=== PATIENT | female | born 1980 | race Caucasian/White ===

== ENCOUNTER → 2016-10-21 | Outpatient (CLI) | payer OTHER ==
[~2016-10-21] MED LIST: IBUP600T44 PO; INSHRI SC; INSUINJ SC; OXYC-57 PO; PRENTAB69 PO
== END | disposition home or self-care (01) ==
LOC: C.PAPS 11:58
PROVIDERS: ATTEND Obstetrics & Gynecology
DX: Z12.4 Encounter for screening for malignant neoplasm of cervix (principal)

== ENCOUNTER → 2016-10-31 | Outpatient (CLI) | payer OTHER ==
--- NOTE | 2016-10-31 13:45 | MAMMOGRAPHY REPORT ---
UNILATERAL LEFT DIGITAL DIAGNOSTIC MAMMOGRAM TOMOSYNTHESIS WITH CAD AND TARGETED LEFT ULTRASOUND: CLINICAL HISTORY: The patient reports a focal area of tenderness in the left breast approximately on e week ago, which has since subsided. She also reports that she felt a possible lump in that region , which feels less prominent to her now. TECHNIQUE: Breast tomosynthesis in addition to standard 2D mammography was performed. Current study was also evaluated with a Computer Aided Detection (CAD) system. Left CC and MLO 2-D and tomosynth esis images were obtained. COMPARISON: No prior exams were available for comparison. BREAST COMPOSITION: There are scattered areas of fibroglandular density in the left breast. FINDINGS: A triangle marker jerome the site of the pain and palpable lump in the left upper outer ainsley drant. No suspicious masses or other suspicious sonographic abnormalities are noted in this region. The remainder of the left breast is negative, without suspicious masses, calcifications, or areas of architectural distortion noted. Targeted ultrasound was performed of the area of pain and possible lump pointed out by the patient, in the left breast at 1:00, 2 cm from the nipple. Sonographically normal tissue is seen in this reg ion, without evidence of a mass or other suspicious sonographic abnormalities. IMPRESSION: ACR BI-RADS CATEGORY 1: NEGATIVE, TARGETED ULTRASOUND ACR BI-RADS CATEGORY 1: NEGATIVE No suspicious mammographic or sonographic abnormality at the site of the prior left breast pain and possible lump. There is no mammographic or targeted sonographic evidence of malignancy. Recommend clinical follow-up,and recommend routine bilateral screening mammograms starting at the age of 40 un less otherwise clinically indicated. The patient has been verbally notified of the results. Approximately 10% of breast cancers are not detected with mammography. A negative mammographic repor t should not delay biopsy if a clinically suggestive mass is present. Maryuri Caputo M.D. ah/:10/31/2016 10:02:31 Delivery Table Operator: Rhonda ESQUIVEL)([place]), [facility] letter sent: Normal 1/2 BI-RADS Code: ACR BI-RADS Category 1: Negative Ultrasound BI-RADS: ACR BI-RADS Category 1: Negative
== END | disposition home or self-care (01) ==
LOC: C.MAMM 09:11
PROVIDERS: ATTEND Obstetrics & Gynecology
DX: R92.8 Other abnormal and inconclusive findings on diagnostic imaging of breast (principal); N63 Unspecified lump in breast

== ENCOUNTER 2020-06-16 05:30 | Inpatient (IN) ==
--- NOTE | 2020-06-15 12:54 | History & Physical Report ---
Date of Service June 15, 2020 Assessment & Plan (1) Previous delivery affecting , antepartum: Admission and Anticipated Discharge Date Admission Date: IUP st 39 weeks with prior C/S X 2 presents for repeat C/S with tubal ligation. the procedures and their risks were reviewed with the patient and her and all of their questions were answered to their satisfaction. History of Present Illness Primary Care Provider: Pradeep Mckenzie MD Patient is a 40 yo white female EDC 06/20/20 who presents at 39+weeks for repeat section. first was done for failure to progress. 2nd was a scheduled repeat. This complicated by AMA and gestational DM diet controlled. AC's have been appropriate & NST's have been reactive. She is also requesting tubal ligation with her . She can claim with great certainty that she is done with having children. concurs with this plan. Allergies Allergy/AdvReac Type Severity Reaction Status Date / Time No Known Allergies Allergy Verified 06/15/20 08:49 Home Medications Home Medications Medication Instructions Recorded Confirmed Type prenat.vits,dhaval,[id number] 1 tab PO DAILY 10/19/19 06/15/20 History acetone (urine) test #50 ea 11/25/19 06/15/20 Rx blood sugar diagnostic #120 ea 11/25/19 06/15/20 Rx blood-glucose meter #1 ea 11/25/19 06/15/20 Rx lancets 33 gauge #120 ea 11/25/19 06/15/20 Rx acetaminophen [Tylenol] 325 mg PO QID PRN 06/14/20 06/15/20 History Patient History Medical History History of gestational diabetes Surgical History History of removal of cyst History of wisdom tooth extraction Hx of section x 2 Family History Grandfather (Maternal) Colorectal cancer Father Skin cancer Other No family history of adverse response to anesthesia Social History Smoking Status: Former smoker Second Hand Exposure: No; Hx Alcohol Use: No Hx Substance Use: No Preferred Language: Sinhala Communication Ability: Effective Heel Emery Buffer Required: No Beliefs That Will Affect Care: None marital status: marital status details: Triny Bill (36) [phone] Current Living Situation: Spouse Current Living Situation Comment: lvies with spouse, 3 children, no pets. current occupational status: employed current occupation: [employer]. Feels Safe at Home: Yes Review of Systems All systems reviewed & are unremarkable except as noted in HPI & below Physical Exam Constitutional: WD/WN, vitals as above Respiratory: normal respiratory effort, lungs clear to auscultation Cardiovascular: RRR, no murmur, no edema Gastrointestinal (Abdomen): normal bowel sounds, soft, nontender, no hepatosplenomegaly Inspection/Auscultation: + abdominal surgical scar (well healed, low transverse) Psychiatric: A+Ox3, euthymic affect Genitourinary: OB Exam Abdomen: + fundal height (39 cm) OB Exam Monitor Tracing: + external FHT monitor used, + external uterine monitor used, + category I and + normal FHT variability Coding Level of Care Code None Diagnoses Previous delivery affecting , antepartum O34.219
[2020-06-16] MEDS ORDERED: SODIUM CHLORIDE 0.9% 250 ML IV PRN (05:43)
[2020-06-16] MEDS ORDERED: LACTATED RINGER'S 1,000 ML IV SCH ×3 (05:45→09:00)
[2020-06-16 05:53] LABS: Basophils # (auto) 0.02 K/uL (0-0.2); Basophils % (auto) 0.2 %; Eosinophils # (auto) 0.22 K/uL (0-0.5); Eosinophils % (auto) 2.2 %; Hematocrit (blood only) 35.5 % (37-47); Hemoglobin 11.9 g/dL (12.0-16.0); Immature Granulocytes # (auto) 0.04 K/uL (0.00-0.02); Immature Granulocytes % (auto) 0.4 %; Lymphocytes # (auto) 2.78 K/uL (1.2-3.4); Lymphocytes % (auto) 27.2 %; Mean Corpuscular Hemoglobin 30.7 pg (25-34); Mean Corpuscular Volume 91.7 fL (80-100); Mean Platelet Volume 11.3 fL (7.4-10.4); Monocytes # (auto) 0.66 K/uL (0.11-0.59); Monocytes % (auto) 6.5 %; Neutrophils # (auto) 6.51 K/uL (1.4-6.5); Neutrophils % (auto) 63.5 %; Platelet Count 178 K/uL (130-400); RDW Coefficient of Variation 13.8 % (11.5-14.5); RDW Standard Deviation 45.5 fL (36.4-46.3); Red Blood Count 3.87 M/uL (4.2-5.4); White Blood Count 10.23 K/uL (4.8-10.8)
[2020-06-16] MEDS ORDERED: CITRIC ACID/SODIUM CITRATE 15 ML UDC PO SCH (06:00)
[2020-06-16] MEDS ORDERED: CEFAZOLIN 3,000 MG in DEXTROSE 5% 50 ML IV SCH (06:00)
[2020-06-16 06:01] LABS: Mean Corpuscular Hgb Conc 33.5 g/dL (32-36)
[2020-06-16] MEDS ORDERED: ePHEDrine sulfate 50 MG/ML AMP ONE (07:11)
[2020-06-16] MEDS ORDERED: fentaNYL citrate 100 MCG/2 ML VIAL ONE (07:12)
[2020-06-16] MEDS ORDERED: MoRPHine SULFATE PF 1 MG/ML 10 ML AMP/VIAL ONE (07:12)
[2020-06-16] MEDS ORDERED: OXYTOCIN 10 UNITS/ML VIAL ONE ×2 (07:15→10:38)
[2020-06-16] MEDS ORDERED: ONDANSETRON INJ 2 MG/ML 2 ML VIAL ONE (07:15)
--- NOTE | 2020-06-16 07:17 | History & Physical Bridge Note ---
Date of Service June 16, 2020 History & Physical Bridge Note I have examined the patient, reviewed the History & Physical and in the interval since the performance of the History & Physical I have noted the following changes of clinical significance: no changes noted
--- NOTE | 2020-06-16 07:20 | Anesthesiology Consultation ---
Date of Service June 16, 2020 Assessment & Plan (1) Encounter for pre-operative examination: Chart Review Chart Review: Acceptable Risk for Surgery and Patient NOT seen in Pre Admission Testing Consults Requested none ASA ASA3 Proposed Anesthesia Anesthesia Type: Spinal Risk / Benefits Reviewed With: PT / POA / Parent / Guardian, Accepts Plan and I nformed Consent Obtained History Surgery Operation Date: 06/16/20 07:30 Proposed Procedures p Section in LD - Michelle Tyler MD, FACOG s with Bilateral Tubal Ligation Labor & Deliv - Michelle Tyler MD, FACOG Height/Weight Height: 5 ft 2 in Weight: 99.79 kg Allergies Allergy/AdvReac Type Severity Reaction Status Date / Time No Known Allergies Allergy Verified 06/15/20 08:49 Medications Home Medications Medication Instructions Recorded Confirmed Last Taken prenat.vits,dhaval,[id number] 1 tab PO DAILY 10/19/19 06/15/20 Unknown acetone (urine) test #50 ea 11/25/19 06/15/20 Unknown blood sugar diagnostic #120 ea 11/25/19 06/15/20 Unknown blood-glucose meter #1 ea 11/25/19 06/15/20 Unknown lancets 33 gauge #120 ea 11/25/19 06/15/20 Unknown acetaminophen [Tylenol] 325 mg PO QID PRN 06/14/20 06/15/20 Unknown Active Medications Generic Name Dose Route Start Last Admin Trade Name Freq PRN Reason Stop Dose Admin Cefazolin Sodium 3,000 mg/ 72.5 mls @ 145 mls/hr 06/16/20 06:00 06/16/20 07:08 Dextrose IV 06/17/20 05:59 145 mls/hr PREOP AARON Administration NPO Date Last Intake of Fluids: 06/15/20 Time Last Intake of Fluids: 21:00 Date Last Intake of Solids: 06/15/20 Time Last Intake of Solids: 17:00 Past Medical History Medical History History of gestational diabetes Exercise / Class Metabolic Activity II 4-5 Yardwork/Stairs/Walk up hill Past Family History Family History Grandfather (Maternal) Colorectal cancer Father Skin cancer Other No family history of adverse response to anesthesia Past Surgical History Surgical History History of wisdom tooth extraction Hx of section x 2 Past Anesthesia History No Hx of Anesthesia Complications History of PONV No Hx of PONV Social History Smoking Status: Never smoker Do You Dip or Chew Tobacco: No Smoking End Date: approx 10 years ago Hx Alcohol Use: No Hx Substance Use: No substance use type: does not use Review of Systems Negative for chest pain or shortness of breath. Patient denies active symptoms of GERD. Physical Exam Vital Signs Last Vital Signs Temp 36.8 C 06/16/20 05:45 Pulse 76 06/16/20 07:13 Resp 18 06/16/20 05:45 BP 147/89 H 06/16/20 07:13 Constitutional not obese (gravid uterus) ENMT Mouth: no TMJ abnormality and oral opening not small Thyromental Distance: > or= 3.5 Finger Breadths Mallampati Class: III braces Neck normal visual inspection; neck extension not limited Respiratory normal respiratory effort Auscultation: lungs clear to auscultation bilaterally Cardiovascular Rate/Rhythm: regular rate and regular rhythm Heart Sounds: no murmur Neurologic moves all extremities Motor/Sensory: no sensory deficit Psychiatric Orientation: alert and oriented x 3 Testing Laboratory Results 06/16/20 05:41 Blood Type A Positive 06/16/20 05:39 Antibody Screen NEGATIVE 06/16/20 05:39
[2020-06-16] MEDS ORDERED: PHENYLEPHRINE 100MCG/ML 5ML SYR ONE (08:23)
[2020-06-16] MEDS ORDERED: KETOROLAC 30 MG/ML VIAL ONE (08:27)
[2020-06-16] MEDS ORDERED: ONDANSETRON INJ 2 MG/ML 2 ML VIAL IV PRN (08:39)
[2020-06-16] MEDS ORDERED: ACETAMINOPHEN 1000 MG/100 ML IV IV PRN (08:39)
[2020-06-16] MEDS ORDERED: DiphenhydrAMINE HCL 50 MG/ML VIAL IV PRN (08:39)
[2020-06-16] MEDS ORDERED: ePHEDrine sulfate 50 MG/ML AMP IV PRN (08:39)
[2020-06-16] MEDS ORDERED: NALOXONE HCL 1 MG in SODIUM CHLORIDE 0.9% 1000ML 1,000 ML IV PRN (08:39)
[2020-06-16] MEDS ORDERED: MoRPHine SULFATE PF 1 MG/ML 10 ML AMP/VIAL INT SPINAL ONE (08:39)
[2020-06-16] MEDS ORDERED: LACTATED RINGER'S 500 ML IV PRN (08:39)
[2020-06-16] MEDS ORDERED: PROMETHAZINE HCL 25 MG in SODIUM CHLORIDE 0.9% 50 ML IV PRN (08:39)
[2020-06-16] MEDS ORDERED: NALOXONE HCL 0.4 MG/1 ML VIAL/CARP IV PRN (08:39)
[2020-06-16] MEDS ORDERED: HYDROmorphone INJ 0.5 MG/0.5 ML SYR IV PRN (08:39)
[2020-06-16] MEDS ORDERED: NALOXONE HCL 0.08 MG in SYRINGE 1.8 ML IV PRN (08:39)
[2020-06-16] MEDS ORDERED: SODIUM CHLORIDE 0.9% 1000ML 1,000 ML IV SCH (08:45)
[2020-06-16] MEDS ORDERED: NO NARCOTICS OR SEDATIVES SCH (08:45)
[2020-06-16] MEDS ORDERED: DC INTRASPINAL MORPHINE SCH (08:45)
--- NOTE | 2020-06-16 08:48 | Post Operative Brief Note ---
PG Immediate Post Op with CF Date of Surgery June 16, 2020 Pre & Post Diagnosis Pre-op - IUP at term previous section X 2 undesired fertility & multiparity Post-op same + delivery of a viable male infant Operation Date: 06/16/20 07:30 <No data on this case meets the specified criteria> I identified the patient and participated in the time-out.: Yes Procedure repeat section bilateral modified lopez tubal ligation Operation Date: 06/16/20 07:30 <No data on this case meets the specified criteria> Surgeon Michelle Tyler MD, FACOG Ged Tutor Uzma Rudd MD Estimated Blood Loss 500 Findings Consistent with Post-Op Diagnosis
[2020-06-16] MEDS ORDERED: DIPHTHERIA/TETANUS/PERTUSSIS 0.5 ML SYR/VIAL IM ONE (08:57)
[2020-06-16] MEDS ORDERED: BENZOCAINE 20% AER SPR 82.5 GM CAN EXT PRN (08:57)
[2020-06-16] MEDS ORDERED: SENNA 8.6 MG TAB PO PRN (08:57)
[2020-06-16] MEDS ORDERED: HYDROCORTISONE ACETATE 25 MG SUPP PR PRN (08:57)
[2020-06-16] MEDS ORDERED: MAGNESIUM HYDROXIDE SUSP 30 ML UDC PO PRN (08:57)
[2020-06-16] MEDS ORDERED: SUPERCREAM 0.870% 15 GM JAR EXT PRN (08:57)
[2020-06-16] MEDS ORDERED: OXYTOCIN 20 UNITS in LACTATED RINGER'S 1,000 ML IV SCH (09:00)
[2020-06-16] MEDS: SIMETHICONE 80 MG CHEW PO SCH ×2 (12:14→21:02)
--- NOTE | 2020-06-16 12:47 | Anesthesiology Progress Note ---
Date of Service June 16, 2020 Anesthesia Post Procedure Vital Signs Vital Signs: Temp Pulse Resp BP Pulse Ox 06/16/20 11:21 61 98 06/16/20 11:19 63 118/64 06/16/20 11:16 64 99 06/16/20 11:11 58 L 99 06/16/20 11:09 60 128/70 06/16/20 11:06 58 L 98 06/16/20 11:01 62 100 06/16/20 11:00 63 126/61 06/16/20 10:56 62 98 06/16/20 10:54 36.8 C 18 99 06/16/20 10:51 61 99 06/16/20 10:49 55 L 131/59 L 06/16/20 10:46 58 L 99 06/16/20 10:41 63 99 06/16/20 10:39 59 L 136/65 06/16/20 10:36 63 97 06/16/20 10:31 36.4 C L 61 18 99 06/16/20 10:30 61 131/60 06/16/20 10:26 66 99 06/16/20 10:21 54 L 99 06/16/20 10:19 57 L 130/59 L 06/16/20 10:16 61 100 06/16/20 10:11 58 L 99 06/16/20 10:06 62 97 06/16/20 10:01 64 158/70 H 99 06/16/20 10:00 36.4 C L 18 99 06/16/20 09:56 70 99 06/16/20 09:51 64 99 06/16/20 09:50 123 H 123/67 06/16/20 09:46 60 99 06/16/20 09:41 60 132/67 99 06/16/20 09:36 59 L 100 06/16/20 09:31 57 L 97 06/16/20 09:30 61 108/57 L 06/16/20 09:26 56 L 97 06/16/20 09:21 59 L 98 06/16/20 09:20 59 L 111/59 L 06/16/20 09:18 62 109/60 06/16/20 09:16 66 97 06/16/20 09:14 59 L 93 06/16/20 09:12 58 L 118/62 06/16/20 09:11 59 L 95 10/02/20 09:10 56 L 112/69 06/16/20 09:08 60 117/71 06/16/20 09:06 58 L 116/69 97 06/16/20 09:04 60 114/67 06/16/20 09:02 68 114/61 06/16/20 09:01 60 95 06/16/20 09:00 36.4 C L 63 18 118/65 06/16/20 08:58 61 118/62 06/16/20 08:57 68 119/66 06/16/20 08:56 62 96 06/16/20 08:54 60 115/67 06/16/20 07:13 76 147/89 H 06/16/20 07:05 36.8 C 16 06/16/20 05:57 75 132/83 06/16/20 05:45 36.8 C 75 18 132/83 Transfer of Care Handoff Completed per policy Notes Mental Status: alert / awake / arousable and participated in evaluation Nausea / Vomiting: adequately controlled Pain: adequately controlled Airway Patency, RR, SpO2: stable & adequate BP & HR: stable & adequate Hydration State: stable & adequate Neuraxial Anesthesia: was administered and sensory block is resolving Anesthetic Complications: no major complications apparent and Pt Satisfied with anesthetic care
--- NOTE | 2020-06-16 14:27 | Operative Report (OR) ---
DATE OF OPERATION: 06/16/2020 SURGEON: Michelle Farnsworth MD. HOSPITALITY HOST: Uzma Rudd MD. PREOPERATIVE DIAGNOSES: Intrauterine at 39+ weeks, prior section x2, undesired fertility and multiparity. POSTOPERATIVE DIAGNOSES: Same plus delivery of a viable male infant, 8 pounds 4 ounces, Apgars 8 and 9. ANESTHESIA: Subarachnoid block. BLOOD LOSS: 500 Ml. HISTORY: The patient is a 40-year-old 3, para 2-0-0-2, white female, EDC of 06/20/2020 who presents at 39+ weeks for repeat section. She is also requesting permanent sterilization. She understands the risks of procedure including the risk for future pregnancies, both ectopic and intrauterine and she wishes to proceed. GROSS FINDINGS: Uterus is gravid and consistent with a term in size. Bilateral ovaries and fallopian tubes are grossly normal. The bladder is adherent high on the lower uterine segment, but this appears to be with filmy adhesions. DESCRIPTION OF PROCEDURE: After the patient received adequate subarachnoid block, she was prepped and draped in usual sterile fashion. The prior incision was entered with the scalpel and carried to the fascia with the same scalpel. The fascial incision was then extended with Williamson scissors. The edges were then grasped with Taylor clamps and the underlying rectus muscle was bluntly and sharply dissected off the overlying fascia. The rectus muscles were divided using a Aleida clamp and blunt dissection to reach the peritoneum. There were then divided with the scalpel. The adhesions at the bladder flap were reduced with blunt dissection. The bladder was then taken down below the bladder blade. The lower uterine segment was noted to be quite thin and this was entered high on the lower uterine segment and extended transversely. Membranes were ruptured for clear fluid. The infant was delivered from the vertex presentation with moderate fundal pressure. There was immediate crying and the was vigorous and moving all 4 limbs. The cord was clamped and cut after delivery and handed off to Dr. Morales, who was in attendance as practice support specialist. The placenta was then expressed intact with a 3-vessel cord. The uterine cavity was then explored and found to be free of any retained tissue or membranes. The uterus was then closed in 2 layers in a running locking imbricating fashion with 0 Monocryl. Some bleeding along the incision site were secured with the Bovie. Attention was then turned to the tubal. The right fallopian tube was anatomically close to the uterine vessels and the ovary. There was minimal mesosalpinx. With elevating the uterus the vessels did drain and a mesosalpinx and a clear space could be found. A stitch was placed on the proximal end of the tube and secured. A knuckle of tube was developed with a Eliane clamp tying to create the knuckle of tube. A second tie of 3-0 plain catgut which was used to secure the tubal site was used to reinforce the first stitch. The knuckle of tube was then removed and the edges of the remaining tube were cauterized with the Bovie. The left fallopian tube was then identified, followed to the fimbriated end as well. It was grasped in the mid portion with a Florence clamp. This tube was not as anatomically close to the ovary or the vessels. A suture ligature of 3-0 plain catgut was used to create the knuckle of tube followed by a second free tie of 3-0 plain catgut. The knuckle of tube was then removed and the cut edges of the tube were cauterized. After irrigating the posterior cul-de-sac and examining the incision to make sure that hemostasis was still satisfactory on the uterus the uterus was placed back inside the abdominal cavity. The tubal sites were then identified and noted to still have excellent hemostasis bilaterally. Some bleeding along the uterine incision again was addressed after the uterus was placed back inside the abdominal cavity. This bleeding was controlled with the Bovie. The gutters were found to be free of any clot or fluid. The rectus muscles were brought together on the midline with individual stitches 0 Monocryl. The fascia was closed in a running fashion with 0 Vicryl. After irrigating the adipose layer, the skin edges were reapproximated using a subcuticular stitch of 3-0 Vicryl. Urine was clear at the end of the case. Mother and infant tolerated the procedure well. I attest to the content of the Intraoperative Record and any orders documented therein. Any exception s are noted below.
[2020-06-16] MEDS: KETOROLAC 30 MG/ML VIAL IV PRN ×2 (16:30→22:46)
[2020-06-16] MEDS: DOCUSATE SODIUM 100 MG CAP PO SCH (21:02)
[2020-06-17] MEDS ORDERED: PROMETHAZINE HCL 25 MG in SODIUM CHLORIDE 0.9% 50 ML IV PRN (02:39)
[2020-06-17] MEDS ORDERED: ZOLPIDEM TARTRATE 5 MG TAB PO PRN (02:39)
[2020-06-17] MEDS ORDERED: ONDANSETRON INJ 2 MG/ML 2 ML VIAL IV PRN (02:39)
[2020-06-17] MEDS ORDERED: KETOROLAC 30 MG/ML VIAL IV PRN (02:39)
[2020-06-17] MEDS ORDERED: MEPERIDINE HCL 50 MG/ML CARP IV PRN (02:39)
[2020-06-17] MEDS ORDERED: DiphenhydrAMINE HCL 50 MG/ML VIAL IV PRN (02:39)
[2020-06-17] MEDS: IBUPROFEN 600 MG TAB PO PRN ×5 (04:22→22:37)
[2020-06-17] MEDS: OXYCODONE/ACETAMINOPHEN 5mg/325mg TAB PO PRN ×6 (04:22→22:38)
[2020-06-17 06:45] LABS: Basophils # (auto) 0.01 K/uL (0-0.2); Basophils % (auto) 0.1 %; Eosinophils % (auto) 0.6 %; Hematocrit (blood only) 31.6 % (37-47); Hemoglobin 10.4 g/dL (12.0-16.0); Immature Granulocytes # (auto) 0.04 K/uL (0.00-0.02); Immature Granulocytes % (auto) 0.3 %; Lymphocytes # (auto) 1.23 K/uL (1.2-3.4); Lymphocytes % (auto) 7.7 %; Mean Corpuscular Hemoglobin 30.3 pg (25-34); Mean Corpuscular Hgb Conc 32.9 g/dL (32-36); Mean Corpuscular Volume 92.1 fL (80-100); Mean Platelet Volume 11.3 fL (7.4-10.4); Monocytes # (auto) 0.88 K/uL (0.11-0.59); Monocytes % (auto) 5.5 %; Neutrophils # (auto) 13.66 K/uL (1.4-6.5); Neutrophils % (auto) 85.8 %; Platelet Count 173 K/uL (130-400); RDW Coefficient of Variation 13.9 % (11.5-14.5); RDW Standard Deviation 46.9 fL (36.4-46.3); Red Blood Count 3.43 M/uL (4.2-5.4); White Blood Count 15.92 K/uL (4.8-10.8)
--- NOTE | 2020-06-17 08:22 | Obstetrical Progress Note ---
Date of Service June 17, 2020 Assessment & Plan (1) Encounter for care and examination after delivery: 40yo day 1 s/p LTCS. Doing well. Routine care Subjective Ambulation: ambulating normally Voiding: no voiding problems Diet Tolerance:: regular diet Lochia:: Moderate Physical Exam Constitutional WD/WN, vitals as above Respiratory normal respiratory effort; no respiratory distress and no labored breathing Gastrointestinal (Abdomen) Inspection/Auscultation: abdomen normal to inspection; abdomen not distended Percussion/Palpation: abdomen soft; abdomen nontender, no guarding and abdomen not rigid Dressing intact. no strike through Genitourinary OB Exam Abdomen: + fundal height Fundus: + firm and + relation to umbilicus (Below); not tender and not boggy Results & Data ([facility]) Vital Signs (Past 12 Hours) Vital Signs Temp Pulse Resp BP Pulse Ox 06/17/20 04:05 36.9 C 73 18 109/71 06/17/20 02:00 18 96 06/17/20 01:00 18 96 06/17/20 00:00 18 96 06/16/20 23:50 37.0 C 73 18 103/66 96 06/16/20 23:00 18 96 06/16/20 22:41 16 97 06/16/20 22:00 16 97 06/16/20 21:00 16 96 06/16/20 20:00 16 98
[2020-06-17] MEDS: DOCUSATE SODIUM 100 MG CAP PO SCH ×2 (09:09→20:52)
[2020-06-17] MEDS: PRENATAL VITAMIN 1 TAB PO SCH (09:09)
[2020-06-17] MEDS: FERROUS SULFATE 325 MG TAB PO SCH (09:09)
[2020-06-17] MEDS: SIMETHICONE 80 MG CHEW PO SCH ×4 (09:10→20:57)
[2020-06-17] MEDS ORDERED: bisacodyL 5 MG TABEC PO SCH (20:00)
[2020-06-18] MEDS: IBUPROFEN 600 MG TAB PO PRN ×3 (02:21→10:55)
[2020-06-18] MEDS: OXYCODONE/ACETAMINOPHEN 5mg/325mg TAB PO PRN ×3 (02:22→10:55)
[2020-06-18 06:29] LABS: Hematocrit (blood only) 29.8 % (37-47); Hemoglobin 9.9 g/dL (12.0-16.0)
[2020-06-18] MEDS: DOCUSATE SODIUM 100 MG CAP PO SCH (07:40)
[2020-06-18] MEDS: SIMETHICONE 80 MG CHEW PO SCH (07:40)
[2020-06-18] MEDS: PRENATAL VITAMIN 1 TAB PO SCH (07:40)
[2020-06-18] MEDS: FERROUS SULFATE 325 MG TAB PO SCH (07:40)
--- NOTE | 2020-06-18 08:46 | Obstetrical Progress Note ---
Date of Service June 18, 2020 Assessment & Plan (1) Encounter for care and examination after delivery: satisfactory post-op course would like to be discharged scripts for percocet & Motrin sent to pharmacy f/u in 6 weeks Subjective Ambulation: ambulating normally Voiding: no voiding problems Passing Gas:: Yes Diet Tolerance:: regular diet Lochia:: Small Feeding Type:: breast feeding Review of Systems All systems reviewed & are unremarkable except as noted in HPI & below Physical Exam Constitutional WD/WN, vitals as above Gastrointestinal (Abdomen) Inspection/Auscultation: + abdominal surgical incision (intact - no erythema) Psychiatric A+Ox3, euthymic affect Results & Data ([facility]) Vital Signs (Past 12 Hours) Vital Signs Temp Pulse Resp BP Pulse Ox 06/17/20 22:50 97.7 F 65 16 107/69 97
[2020-06-18] MEDS ORDERED: bisacodyL 10 MG SUPP PR PRN (08:57)
--- NOTE | 2020-06-19 07:31 | Discharge Summary (DS) ---
PRINCIPAL DIAGNOSES: Intrauterine at term, prior section x2, undesired fertility, and multiparity. PRINCIPAL PROCEDURE: A repeat low transverse section and bilateral modified [place] tubal ligation. HISTORY OF PRESENT ILLNESS AND HOSPITAL COURSE: The patient is a 40-year-old 3, para 2-0-0-2, white female, who presented at 39+ weeks for repeat section. She is also requesting permanent sterilization. She underwent the repeat section and tubal ligation without complications. She had an uncomplicated postop course. She remained afebrile throughout her hospital stay. She was eating regular diet on her 1st postop day. Pain medications were controlling her pain well. She was ambulating and voiding without difficulty on her 1st postop day and continued to improve over her admission. Hemoglobin on admission was 11.9, hematocrit 35.5. First postop day hemoglobin 10.4, hematocrit 31.6. Second postop day hemoglobin 9.9, hematocrit 29.8. She was sent home with prescriptions for Percocet 1 or 2 tablets p.o. q. 6 hours p.r.n. pain, Motrin 600 mg every 6 hours p.r.n. pain. She is to call for temperature of 101 degrees or higher, heavy vaginal bleeding, burning with urination, increased redness, drainage or pain in her incision, calf tenderness or any other concerns. She is to be seen in the office in 6 weeks for a followup visit.
== END 2020-06-18 12:30 | disposition home or self-care (01) | DRG 785 ==
LOC: 4S1 05:30 → EDSTATUS 07:30 → 4S2 11:42
PROC: M.PPTLD (2020-06-16 07:30)